=== PATIENT | male | born 1995 | race Caucasian/White ===

== ENCOUNTER 2017-06-04 10:04 | Emergency (ER) | payer SELFPAY ==
[2017-06-04 10:20] VITALS: TEMP 98; BMI 28.5
[2017-06-04] MEDS ORDERED: ONDANSETRON 4 MG/2 ML VIAL IVPUSH ONE (10:32)
[2017-06-04] MEDS ORDERED: SODIUM CHLORIDE 1,000 ML IV STA (10:32)
--- NOTE | 2017-06-04 10:32 | PDOC ---
History of Present Illness - General Chief Complaint: Pain, Acute Stated Complaint: KIDNEY STONES Time Seen by Provider: 06/04/17 10:16 History Source: Patient Exam Limitations: No Limitations - History of Present Illness Initial Comments: 06/04/17 10:35 Patient is a 22-year-old male with no past medical history who presents to emergency department today complaining of a sharp pain on his left side. Patient states that for approximately one week he is had a dull ache on his left flank. He states that last night he was drinking when he coughed. He felt something "drop "and then had a very sharp pain. He took 600 of ibuprofen with relief last night. The pain woke him from sleep this morning. He took 500 mg of naproxen and 200 mg of ibuprofen with some relief. Patient believes he has this pain d/t his drinking. He drinks approximately 1/2 of a rum bottle every night. He currently rates the pain a 10 out of 10. Denies fevers, chills, nausea, vomiting, abdominal pain, frequency, urgency and hematuria. Past History - Travel Traveled outside of the country in the last 30 days: No Close contact w/someone who was outside of country & ill: No - Past Medical History Allergies/Adverse Reactions: Allergies Allergy/AdvReac Type Severity Reaction Status Date / Time No Known Allergies Allergy Verified 06/04/17 10:11 Home Medications: Ambulatory Orders NK [No Known Home Medication] 06/04/17 COPD: No Other medical history: DENIES MEDICAL HX - Suicide/Smoking/Psychosocial Hx Smoking History: Current every day smoker Number of Cigarettes Smoked Daily: 10 Information on smoking cessation initiated: No Hx Alcohol Use: Yes Drug/Substance Use Hx: No Substance Use Type: Alcohol Review of Systems - Review of Systems Able to Perform ROS?: Yes Comments:: 06/04/17 10:35 CONSTITUTIONAL: Absent: fever, chills, diaphoresis, generalized weakness, malaise, loss of appetite HEENT: Absent: rhinorrhea, nasal congestion, throat pain, throat swelling, difficulty swallowing, mouth swelling, ear pain, eye pain, visual Changes CARDIOVASCULAR: Absent: chest pain, loss of consciousness, palpitations, irregular heart rate, peripheral edema RESPIRATORY: Absent: cough, shortness of breath, dyspnea with exertion, orthopnea, wheezing, stridor, hemoptysis GASTROINTESTINAL: Absent: abdominal pain, abdominal distension, nausea, vomiting, diarrhea, constipation, melena, hematochezia GENITOURINARY: Present: L flank pain Absent: dysuria, frequency, urgency, hesitancy, hematuria , genital pain MUSCULOSKELETAL: Absent: myalgia, arthralgia, joint swelling SKIN: Absent: rash, itching, pallor HEMATOLOGIC/IMMUNOLOGIC: Absent: easy bleeding, easy bruising, lymphadenopathy, frequent infections ENDOCRINE: Absent: unexplained weight gain, unexplained weight loss, heat intolerance, cold intolerance NEUROLOGIC: Absent: headache, focal weakness or paresthesias, dizziness, unsteady gait, seizure, mental status changes, bladder or bowel incontinence PSYCHIATRIC: Absent: anxiety, depression, suicidal or homicidal ideation, hallucinations. Is the patient limited Maltese proficient: No *Physical Exam - Vital Signs Last Vital Signs Temp Pulse Resp BP Pulse Ox 98.0 F 99 H 18 136/82 95 06/04/17 10:08 06/04/17 10:08 06/04/17 10:08 06/04/17 10:08 06/04/17 10:08 - Physical Exam Comments: 06/04/17 10:36 GENERAL: Well developed, well nourished. Awake and alert. Mild distress d/t pain. Holding L side. HEENT: Normocephalic, atraumatic. PERRLA, EOMI. No conjunctival pallor. Sclera are non- icteric. Moist mucous membranes. Oropharynx is clear. NECK: Supple. Full ROM. No JVD. Carotid pulses 2+ and symmetric, without bruits. No thyromegaly. No lymphadenopathy. CARDIOVASCULAR: Regular rate and rhythm. No murmurs, rubs, or gallops. Distal pulses are 2+ and symmetric. PULMONARY: No evidence of respiratory distress. Lungs clear to auscultation bilaterally. No wheezing, rales or rhonchi. ABDOMINAL: Soft. Non-tender. Non-distended. No rebound or guarding. No organomegaly. Normoactive bowel sounds. MUSCULOSKELETAL Present: L CVA tenderness. Normal range of motion at all joints. No bony deformities or tenderness. EXTREMITIES: No cyanosis. No clubbing. No edema. No calf tenderness. SKIN: Warm and dry. Normal capillary refill. No rashes. No jaundice. NEUROLOGICAL: Alert, awake, appropriate. Cranial nerves 2-12 intact. No deficits to light touch and temperature in face, upper extremities and lower extremities. No motor deficits in the in face, upper extremities and lower extremities. Normoreflexic in the upper and lower extremities. Normal speech. Toes are down- going bilaterally. Gait is normal without ataxia. PSYCHIATRIC: Cooperative. Good eye contact. Appropriate mood and affect. ED Treatment Course - LABORATORY CBC & Chemistry Diagram: 06/04/17 10:45 06/04/17 10:45 *DC/Admit/Observation/Transfer Diagnosis at time of Disposition: Flank pain - Discharge Dispostion Disposition: HOME Condition at time of disposition: Stable Admit: No - Referrals Referrals: Elijah Etienne MD [Staff Physician] - - Patient Instructions Printed Discharge Instructions: DI for Flank Pain Additional Instructions: You have flank pain. Your CT today was negative for kidney stones. Please take ibuprofen 800 mg every 8 hours. If you still need pain control he may take Tylenol as needed every 6 hours. You may use warm heating pads to the area to help relieve her pain. Your also prescribed Flexeril. He may take this medication at night. Do not drive after taking this medication as it may make you sleepy. Do not mix this medication with alcohol. Please follow-up with the referral provided. Return to the emergency department if you have worsening pain, nausea, vomiting , lightheadedness, blood and urine numbness and tingling, or about bladder and bowel incontinence or any changes in your symptoms. - Post Discharge Activity Forms/Work/School Notes: Back to Work
[2017-06-04] MEDS ORDERED: ACETAMINOPHEN 1000 MG/100 ML VIAL (NON FORMULARY) IVPB ONE (10:33)
[2017-06-04] MEDS ORDERED: ACETAMINOPHEN INJECTION 100 ML IVPB ONE (10:37)
[2017-06-04] MEDS ORDERED: ONDANSETRON 4 MG/2 ML VIAL ONE (10:44)
[2017-06-04 10:51] LABS: BASO % 1.1 % (0-2.0); EOS % 0.5 % (0-4.5); HEMATOCRIT 47.1 % (35.4-49); HEMOGLOBIN 16.8 GM/dL (11.7-16.9); LYMPH % 30.5 % (8-40); MCH 34.7 pg (25.7-33.7); MCHC 35.6 g/dl (32.0-35.9); MEAN CELL VOLUME 97.5 fl (80-96); MEAN PLT VOLUME 7.4 fl (7.5-11.1); MONO % 10.2 % (3.8-10.2); NEUT % 57.7 % (42.8-82.8); PLATELET COUNT 231 K/MM3 (134-434); RBC 4.83 M/mm3 (4.00-5.60)
[2017-06-04 12:27] LABS: ALBUMIN 4.9 g/dl (3.4-5.0); ANION GAP 8 (8-16); BLOOD UREA NITROGEN 18 mg/dL (7-18); CALCIUM 9.1 mg/dL (8.5-10.1); CHLORIDE 104 mmol/L (98-107); CO2 26 mmol/L (21-32); GLUCOSE,RANDOM 96 mg/dL (74-106); POTASSIUM 4.3 mmol/L (3.5-5.1); SODIUM 138 mmol/L (136-145)
[2017-06-04 12:31] LABS: ALK PHOS 104 U/L (45-117); BILIRUBIN,TOTAL 1.1 mg/dL (0.2-1.0); SGOT/AST 37 U/L (15-37); SGPT/ALT 80 U/L (12-78); TOT PROT 7.6 g/dl (6.4-8.2)
[2017-06-04 12:48] LABS: URINE APPEARANCE CLEAR; URINE BILIRUBIN NEGATIVE (NEGATIVE); URINE BLOOD NEGATIVE (NEGATIVE); URINE COLOR LTYELLOW; URINE GLUCOSE (UA) NEGATIVE (NEGATIVE); URINE KETONE NEGATIVE (NEGATIVE); URINE LEUK ESTERASE NEGATIVE (NEGATIVE); URINE NITRITE NEGATIVE (NEGATIVE); URINE PROTEIN NEGATIVE (NEGATIVE); URINE UROBILINOGEN NEGATIVE mg/dL (0.2-1.0)
[2017-06-04 13:50] VITALS: BP 133/86; PULSE 81
== END 2017-06-04 14:26 | disposition home or self-care (01) ==
LOC: JER 10:04
PROC: 3E033NZ Introduction of Analgesics, Hypnotics, Sedatives into Peripheral Vein, Percutaneous Approach (ICD-10-PCS; principal; 2017-06-04)
PROC: 3E033GC Introduction of Other Therapeutic Substance into Peripheral Vein, Percutaneous Approach (ICD-10-PCS; 2017-06-04)
PROC: 3E0337Z Introduction of Electrolytic and Water Balance Substance into Peripheral Vein, Percutaneous Approach (ICD-10-PCS; 2017-06-04)
DX: R10.32 Left lower quadrant pain (principal)
CPT/HCPCS: 36415; 74176; 80053; 81003; 85025; 87086; 99283-25

== ENCOUNTER 2021-12-21 22:14 | Inpatient (IN) | payer SELFPAY ==
[2021-12-21] MEDS ORDERED: FOLIC ACID INJECTION - 1 MG, THIAMINE HCL 100 MG, MULTIVIT INJECTION ADULT 10 ML in SOD... IVPB ONE (23:53)
[2021-12-21] MEDS ORDERED: diazePAM CARPU-JECT 10 MG/2 ML DISP.SYRIN IVPUSH ONE (23:53)
[2021-12-22] MEDS ORDERED: diazePAM CARPU-JECT 10 MG/2 ML DISP.SYRIN ONE (00:14)
[2021-12-22 00:35] LABS: ALBUMIN 4.3 g/dl (3.4-5.0); BLOOD UREA NITROGEN 7.7 mg/dL (7-18); CALCIUM 9.3 mg/dL (8.5-10.1)
[2021-12-22 00:36] LABS: BASO % 1.2 % (0-2.0); EOS % 0.2 % (0-4.5); HEMATOCRIT 47.4 % (35.4-49); HEMOGLOBIN 16.9 GM/dL (11.7-16.9); LYMPH % 24.1 % (8-40); MCH 36.7 pg (25.7-33.7); MCHC 35.7 g/dl (32.0-35.9); MEAN CELL VOLUME 102.8 fl (80-96); MEAN PLT VOLUME 7.4 fl (7.5-11.1); MONO % 10.7 % (3.8-10.2); NEUT % 63.8 % (42.8-82.8); PLATELET COUNT 139 10^3/uL (134-434); RBC 4.61 M/mm3 (4.00-5.60); RDW 13.3 % (11.9-15.9); WHITE BLOOD COUNT 2.9 K/mm3 (4.0-10.0)
[2021-12-22 00:38] LABS: CREATININE 0.9 mg/dL (0.55-1.3)
[2021-12-22 00:39] LABS: BILIRUBIN,TOTAL 1.6 mg/dL (0.2-1); TOT PROT 7.5 g/dl (6.4-8.2)
[2021-12-22] MEDS ORDERED: chlordiazePOXIDE HCL 25 MG CAPSULE PO ONE (02:30)
[2021-12-22] MEDS ORDERED: chlordiazePOXIDE HCL 25 MG CAPSULE ONE (02:34)
[2021-12-22] MEDS ORDERED: LORazepam 1 MG TABLET PO PRN (06:20)
[2021-12-22] MEDS ORDERED: FOLIC ACID INJECTION - 1 MG, THIAMINE HCL 100 MG, MULTIVIT INJECTION ADULT 10 ML in SOD... IVPB ONE ×2 (06:21→07:17)
[2021-12-22] MEDS ORDERED: LORazepam 1 MG TABLET ONE ×2 (06:39→11:10)
[2021-12-22] MEDS: LORazepam 1 MG TABLET PO SCH ×4 (06:48→23:49)
[2021-12-22] MEDS: LACTATED RINGERS SOLUTION 1,000 ML IV SCH ×2 (07:38→19:04)
[2021-12-22 07:58] LABS: BASO % 0.9 % (0-2.0); EOS % 0.3 % (0-4.5); HEMATOCRIT 44.5 % (35.4-49); HEMOGLOBIN 15.7 GM/dL (11.7-16.9); LYMPH % 26.7 % (8-40); MCH 36.5 pg (25.7-33.7); MCHC 35.4 g/dl (32.0-35.9); MEAN CELL VOLUME 103.3 fl (80-96); MONO % 10.1 % (3.8-10.2); PLATELET COUNT 112 10^3/uL (134-434); RDW 13.4 % (11.9-15.9)
[2021-12-22 08:09] LABS: CALCIUM 8.8 mg/dL (8.5-10.1)
[2021-12-22 08:10] LABS: ALBUMIN 3.9 g/dl (3.4-5.0); BLOOD UREA NITROGEN 8.4 mg/dL (7-18); MAGNESIUM 1.5 mg/dL (1.8-2.4)
[2021-12-22 08:13] LABS: BILIRUBIN,TOTAL 2.2 mg/dL (0.2-1); CREATININE 0.7 mg/dL (0.55-1.3); PHOSPHOROUS 3.7 mg/dL (2.5-4.9); TOT PROT 6.4 g/dl (6.4-8.2)
[2021-12-22] MEDS ORDERED: MAGNESIUM OXIDE 400 MG TABLET (FP) PO ONE ×2 (10:12→13:25)
[2021-12-22] MEDS ORDERED: THIAMINE HCL 200 MG/2 ML VIAL ONE (11:09)
[2021-12-22] MEDS ORDERED: MAGNESIUM OXIDE 400 MG TABLET (FP) ONE (11:09)
[2021-12-22] MEDS ORDERED: ENOXAPARIN NA (PORCINE) 40 MG/0.4 ML DISP.SYRIN SQ ONE (11:10)
[2021-12-22] MEDS: ENOXAPARIN NA (PORCINE) 40 MG/0.4 ML DISP.SYRIN SQ SCH (11:23)
[2021-12-22] MEDS: THIAMINE HCL 200 MG/2 ML VIAL IVPB SCH (11:23)
[2021-12-22 15:27] LABS: BILIRUBIN,DIRECT 0.8 mg/dL (0.0-0.2)
[2021-12-22] MEDS ORDERED: NICOTINE 7 MG/24 HOURS TOPICAL PATCH TD ONE (16:38)
[2021-12-22] MEDS: NICOTINE 7 MG/24 HOURS TOPICAL PATCH TD SCH (16:46)
[2021-12-23 00:57] VITALS: BMI 30.1
[2021-12-23] MEDS: LACTATED RINGERS SOLUTION 1,000 ML IV SCH ×3 (05:50→16:23)
[2021-12-23] MEDS: LORazepam 1 MG TABLET PO SCH ×4 (06:16→22:03)
[2021-12-23] MEDS ORDERED: MAGNESIUM OXIDE 400 MG TABLET (FP) PO ONE (09:31)
[2021-12-23] MEDS ORDERED: FOLIC ACID 5 MG/1 ML SQ SCH (10:00)
[2021-12-23] MEDS ORDERED: FOLIC ACID 1 MG TABLET (FP) PO SCH (10:00)
[2021-12-23 10:01] LABS: HEMATOCRIT 43.7 % (35.4-49); HEMOGLOBIN 15.5 GM/dL (11.7-16.9); MCH 36.2 pg (25.7-33.7); MCHC 35.6 g/dl (32.0-35.9); MEAN CELL VOLUME 101.8 fl (80-96); MEAN PLT VOLUME 8.5 fl (7.5-11.1); PLATELET COUNT 96 10^3/uL (134-434); RBC 4.29 M/mm3 (4.00-5.60); RDW 13.3 % (11.9-15.9); WHITE BLOOD COUNT 3.6 K/mm3 (4.0-10.0)
[2021-12-23 10:31] LABS: ALBUMIN 3.6 g/dl (3.4-5.0); BLOOD UREA NITROGEN 6.4 mg/dL (7-18); CALCIUM 9.1 mg/dL (8.5-10.1)
[2021-12-23 10:32] LABS: MAGNESIUM 1.8 mg/dL (1.8-2.4)
[2021-12-23 10:34] LABS: BILIRUBIN,DIRECT 1.1 mg/dL (0.0-0.2); CREATININE 0.7 mg/dL (0.55-1.3)
[2021-12-23 10:35] LABS: PHOSPHOROUS 2.6 mg/dL (2.5-4.9)
[2021-12-23 10:36] LABS: TOT PROT 6.4 g/dl (6.4-8.2)
[2021-12-23] MEDS: NICOTINE 7 MG/24 HOURS TOPICAL PATCH TD SCH (10:47)
[2021-12-23] MEDS: THIAMINE HCL 200 MG/2 ML VIAL IVPB SCH (10:47)
[2021-12-23] MEDS: ENOXAPARIN NA (PORCINE) 40 MG/0.4 ML DISP.SYRIN SQ SCH (10:47)
[2021-12-23 18:37] VITALS: TEMP 98.7
[2021-12-23 20:27] VITALS: BP 143/89; PULSE 65
[2021-12-24] MEDS ORDERED: LORazepam 0.5 MG TABLET PO PRN
[2021-12-24 00:09] VITALS: RESP 18
[2021-12-24] MEDS ORDERED: LORazepam 0.5 MG TABLET PO SCH (05:00)
[2021-12-25] MEDS ORDERED: LORazepam 0.5 MG TABLET PO ONE (05:00)
== END 2021-12-23 22:50 | disposition left against medical advice (07) | DRG 770 ==
LOC: JER 22:14 → JERBED 12-22 06:04 → J5S 12-22 18:23
PROVIDERS: ADMIT Internal Medicine; ATTEND Internal Medicine
PROC: HZ2ZZZZ Detoxification Services for Substance Abuse Treatment (ICD-10-PCS; principal; 2021-12-22)
DX: F10.239 Alcohol dependence with withdrawal, unspecified (principal); R74.01 Elevation of levels of liver transaminase levels
CPT/HCPCS: 36415; 70450-TC; 70486-TC; 71046-TC-FY; 74177-TC; 80053; 80076; 80307; 82248; 83690; 83735; 84100; 85025; 85027; 86704; 86803; 87340; 87517; 93005; 93010; 99285-25; C9803-CS; Q9967; U0003; U0005

== ENCOUNTER 2022-04-12 18:02 | Inpatient (IN) | payer OTHER ==
[2022-04-12 18:54] VITALS: BMI 25.4
[2022-04-12] MEDS ORDERED: ACETAMINOPHEN 325 MG TABLET (FP) PO PRN ×2 (19:16)
[2022-04-12] MEDS ORDERED: POLYETHYLENE GLYCOL (HEALTHYLAX) 3350 17 GM PACKET PO PRN (19:16)
[2022-04-12] MEDS ORDERED: ONDANSETRON *ODT* 4 MG TABLET SL PRN (19:16)
[2022-04-12] MEDS ORDERED: BENZOCAINE/MENTHOL (CHLORASEPTIC ) LOZENGE MM PRN (19:16)
[2022-04-12] MEDS ORDERED: LOPERAMIDE HCL 2 MG CAPSULE PO PRN (19:16)
[2022-04-12] MEDS ORDERED: IBUPROFEN 600 MG TABLET (FP) PO PRN (19:16)
[2022-04-12] MEDS ORDERED: hydrOXYzine PAMOATE 25 MG CAPSULE (FP) PO PRN (19:16)
[2022-04-12] MEDS ORDERED: guaiFENesin 200 MG/10 ML 10 ML UNIT-DOSE CUPS PO PRN (19:16)
[2022-04-12] MEDS ORDERED: DICYCLOMINE HCL 10 MG CAPSULE PO PRN (19:16)
[2022-04-12] MEDS ORDERED: METHOCARBAMOL 500 MG TABLET PO PRN (19:16)
[2022-04-12] MEDS ORDERED: P-EPHED 60MG/TRIPROLIDI 2.5MG TABLET PO PRN (19:16)
[2022-04-12] MEDS ORDERED: MAGNESIUM HYDROX 2400MG/30ML ORAL SUSPENSION 30 ML CUP PO PRN (19:16)
[2022-04-12] MEDS ORDERED: IBUPROFEN 400 MG TABLET (FP) PO PRN (19:16)
[2022-04-12] MEDS ORDERED: BISMUTH SUBSALICYLATE 524 MG/30 ML PO PRN (19:16)
[2022-04-12] MEDS ORDERED: MAG HYDROX/AL HYDROX/SIMETH 30 ML UNIT-DOSE CUP PO PRN (19:16)
[2022-04-12] MEDS ORDERED: NICOTINE POLACRILEX 2 MG GUM BUC PRN (19:16)
[2022-04-12] MEDS ORDERED: chlordiazePOXIDE HCL 25 MG CAPSULE PO PRN (19:21)
[2022-04-12] MEDS ORDERED: LORazepam 2 MG/ML SDV VIAL IM ONE (19:40)
[2022-04-12] MEDS ORDERED: TRIMETHOBENZAMIDE HCL 200MG/2ML INJ IM ONE ×2 (19:40→21:38)
[2022-04-12] MEDS ORDERED: THIAMINE HCL 100 MG TABLET (FP) PO SCH (22:00)
[2022-04-12] MEDS ORDERED: MELATONIN 5 MG TABLETS PO SCH (22:00)
[2022-04-12] MEDS: chlordiazePOXIDE HCL 25 MG CAPSULE PO SCH (22:45)
[2022-04-13] MEDS: chlordiazePOXIDE HCL 25 MG CAPSULE PO SCH ×2 (05:27→10:06)
[2022-04-13 06:28] VITALS: RESP 18
[2022-04-13 09:29] VITALS: BP 137/97; PULSE 115; TEMP 97.7
[2022-04-13] MEDS ORDERED: PRENATAL VITAMINS W/ FOLIC ACID TABLET (FP) PO SCH (10:00)
[2022-04-13 11:01] LABS: HEMATOCRIT 47.9 % (35.4-49); HEMOGLOBIN 16.6 GM/dL (11.7-16.9); MCH 35.7 pg (25.7-33.7); MCHC 34.6 g/dl (32.0-35.9); MEAN CELL VOLUME 103.3 fl (80-96); MEAN PLT VOLUME 8.2 fl (7.5-11.1); PLATELET COUNT 134 10^3/uL (134-434); RBC 4.64 M/mm3 (4.00-5.60); RDW 12.5 % (11.9-15.9); WHITE BLOOD COUNT 3.7 K/mm3 (4.0-10.0)
[2022-04-13 11:12] LABS: CALCIUM 10.5 mg/dL (8.5-10.1)
[2022-04-13 11:13] LABS: BLOOD UREA NITROGEN 8.6 mg/dL (7-18)
[2022-04-13 11:15] LABS: CREATININE 0.9 mg/dL (0.55-1.3)
[2022-04-13 11:16] LABS: BILIRUBIN,TOTAL 3.2 mg/dL (0.2-1)
[2022-04-13 11:17] LABS: TOT PROT 8.3 g/dl (6.4-8.2)
[2022-04-14] MEDS ORDERED: chlordiazePOXIDE HCL 25 MG CAPSULE PO SCH (05:00)
[2022-04-15] MEDS ORDERED: chlordiazePOXIDE HCL 10 MG CAPSULE PO PRN
[2022-04-15] MEDS ORDERED: chlordiazePOXIDE HCL 10 MG CAPSULE PO SCH (05:00)
[2022-04-16] MEDS ORDERED: chlordiazePOXIDE HCL 10 MG CAPSULE PO SCH (05:00)
[2022-04-17] MEDS ORDERED: chlordiazePOXIDE HCL 10 MG CAPSULE PO ONE (05:00)
== END 2022-04-13 11:46 | disposition left against medical advice (07) | DRG 770 ==
LOC: YASAS 18:02 → Y3N 21:24
PROVIDERS: ADMIT Allergy & Immunology; ATTEND Surgery
PROC: HZ2ZZZZ Detoxification Services for Substance Abuse Treatment (ICD-10-PCS; principal; 2022-04-12)
DX: F10.230 Alcohol dependence with withdrawal, uncomplicated (principal); F12.20 Cannabis dependence, uncomplicated; F17.210 Nicotine dependence, cigarettes, uncomplicated; Z28.310 Unvaccinated for COVID-19; Z28.9 Immunization not carried out for unspecified reason
CPT/HCPCS: 36415; 80053; 85027; 86780; C9803-CS; Q0162; U0003; U0005

== ENCOUNTER 2022-06-14 16:51 | Inpatient (IN) | payer OTHER ==
[2022-06-14 17:12] VITALS: BMI 25.7
[2022-06-14] MEDS ORDERED: TRIMETHOBENZAMIDE HCL 200MG/2ML INJ IM ONE ×2 (17:15→17:23)
[2022-06-14] MEDS ORDERED: LORazepam 2 MG/ML SDV VIAL IM ONE (17:30)
[2022-06-14] MEDS ORDERED: BENZOCAINE/MENTHOL (CHLORASEPTIC ) LOZENGE MM PRN (17:35)
[2022-06-14] MEDS ORDERED: NICOTINE 10 MG CARTRIDGE (INHALER) IH PRN (17:35)
[2022-06-14] MEDS ORDERED: MAGNESIUM HYDROX 2400MG/30ML ORAL SUSPENSION 30 ML CUP PO PRN (17:35)
[2022-06-14] MEDS ORDERED: IBUPROFEN 600 MG TABLET (FP) PO PRN (17:35)
[2022-06-14] MEDS ORDERED: POLYETHYLENE GLYCOL (HEALTHYLAX) 3350 17 GM PACKET PO PRN (17:35)
[2022-06-14] MEDS ORDERED: METHOCARBAMOL 500 MG TABLET PO PRN (17:35)
[2022-06-14] MEDS ORDERED: IBUPROFEN 400 MG TABLET (FP) PO PRN (17:35)
[2022-06-14] MEDS ORDERED: guaiFENesin 600 MG TABLET.ER (FP) PO PRN (17:35)
[2022-06-14] MEDS ORDERED: BISMUTH SUBSALICYLATE 524 MG/30 ML PO PRN (17:35)
[2022-06-14] MEDS ORDERED: P-EPHED 60MG/TRIPROLIDI 2.5MG TABLET PO PRN (17:35)
[2022-06-14] MEDS ORDERED: NICOTINE POLACRILEX 2 MG GUM BUC PRN (17:35)
[2022-06-14] MEDS ORDERED: ONDANSETRON *ODT* 4 MG TABLET SL PRN (17:35)
[2022-06-14] MEDS ORDERED: LOPERAMIDE HCL 2 MG CAPSULE PO PRN (17:35)
[2022-06-14] MEDS ORDERED: DICYCLOMINE HCL 10 MG CAPSULE PO PRN (17:35)
[2022-06-14] MEDS ORDERED: BENZONATATE 200 MG CAPSULE PO PRN (17:35)
[2022-06-14] MEDS ORDERED: ACETAMINOPHEN 325 MG TABLET (FP) PO PRN (17:35)
[2022-06-14] MEDS ORDERED: MELATONIN 5 MG TABLETS PO PRN (17:35)
[2022-06-14] MEDS ORDERED: MAG HYDROX/AL HYDROX/SIMETH 30 ML UNIT-DOSE CUP PO PRN (17:35)
[2022-06-14] MEDS ORDERED: METOPROLOL TARTRATE 50 MG TABLET (FP) PO ONE (17:38)
[2022-06-14] MEDS ORDERED: chlordiazePOXIDE HCL 25 MG CAPSULE PO PRN (17:38)
[2022-06-14] MEDS ORDERED: chlordiazePOXIDE HCL 25 MG CAPSULE ONE (17:49)
[2022-06-14] MEDS ORDERED: METOPROLOL TARTRATE 25 MG TABLET (FP) ONE (17:49)
[2022-06-14] MEDS: chlordiazePOXIDE HCL 25 MG CAPSULE PO SCH ×2 (17:50→22:38)
[2022-06-14] MEDS ORDERED: METOPROLOL TARTRATE 25 MG TABLET (FP) PO ONE (18:00)
[2022-06-14] MEDS: THIAMINE HCL 100 MG TABLET (FP) PO SCH (22:38)
[2022-06-14] MEDS: levETIRAcetam 500 MG TABLET (FP) PO SCH (22:38)
[2022-06-15] MEDS: chlordiazePOXIDE HCL 25 MG CAPSULE PO SCH ×4 (05:17→22:14)
[2022-06-15] MEDS ORDERED: TRIMETHOBENZAMIDE HCL 200MG/2ML INJ IM ONE (08:46)
[2022-06-15 10:04] LABS: HEMATOCRIT 43.3 % (35.4-49); HEMOGLOBIN 14.8 GM/dL (11.7-16.9); MCH 34.5 pg (25.7-33.7); MCHC 34.1 g/dl (32.0-35.9); MEAN CELL VOLUME 101.2 fl (80-96); MEAN PLT VOLUME 7.5 fl (7.5-11.1); PLATELET COUNT 105 10^3/uL (134-434); RBC 4.28 M/mm3 (4.00-5.60); RDW 13.2 % (11.9-15.9)
[2022-06-15] MEDS: PRENATAL VITAMINS W/ FOLIC ACID TABLET (FP) PO SCH (10:09)
[2022-06-15] MEDS: levETIRAcetam 500 MG TABLET (FP) PO SCH ×2 (10:09→22:13)
[2022-06-15] MEDS ORDERED: POTASSIUM CHLORIDE ORAL LIQUID 20 MEQ/15 ML PO ONE (14:01)
[2022-06-15 14:07] LABS: CALCIUM 8.9 mg/dL (8.5-10.1)
[2022-06-15 14:08] LABS: ALBUMIN 4.3 g/dl (3.4-5.0); BLOOD UREA NITROGEN 13.1 mg/dL (7-18)
[2022-06-15 14:11] LABS: CREATININE 0.8 mg/dL (0.55-1.3)
[2022-06-15 14:12] LABS: BILIRUBIN,TOTAL 2.9 mg/dL (0.2-1); TOT PROT 7.2 g/dl (6.4-8.2)
[2022-06-15] MEDS: THIAMINE HCL 100 MG TABLET (FP) PO SCH (22:13)
[2022-06-16] MEDS ORDERED: LORazepam 1 MG TABLET PO PRN (00:20)
[2022-06-16] MEDS ORDERED: chlordiazePOXIDE HCL 25 MG CAPSULE PO SCH (05:00)
[2022-06-16] MEDS: LORazepam 1 MG TABLET PO SCH ×2 (05:28→10:08)
[2022-06-16 06:19] VITALS: RESP 16
[2022-06-16 09:11] VITALS: BP 136/89; PULSE 90; TEMP 96.9
[2022-06-16] MEDS: PRENATAL VITAMINS W/ FOLIC ACID TABLET (FP) PO SCH (10:08)
[2022-06-16] MEDS: levETIRAcetam 500 MG TABLET (FP) PO SCH (10:08)
[2022-06-17] MEDS ORDERED: LORazepam 0.5 MG TABLET PO PRN
[2022-06-17] MEDS ORDERED: chlordiazePOXIDE HCL 10 MG CAPSULE PO PRN
[2022-06-17] MEDS ORDERED: LORazepam 0.5 MG TABLET PO SCH (05:00)
[2022-06-17] MEDS ORDERED: chlordiazePOXIDE HCL 10 MG CAPSULE PO SCH (05:00)
[2022-06-18] MEDS ORDERED: LORazepam 0.5 MG TABLET PO ONE (05:00)
[2022-06-18] MEDS ORDERED: chlordiazePOXIDE HCL 10 MG CAPSULE PO SCH (05:00)
[2022-06-19] MEDS ORDERED: chlordiazePOXIDE HCL 10 MG CAPSULE PO ONE (05:00)
== END 2022-06-16 11:40 | disposition left against medical advice (07) | DRG 770 ==
LOC: YASAS 16:51 → Y3N 17:43
PROVIDERS: ADMIT Allergy & Immunology; ATTEND Surgery
PROC: HZ2ZZZZ Detoxification Services for Substance Abuse Treatment (ICD-10-PCS; principal; 2022-06-14)
DX: F10.230 Alcohol dependence with withdrawal, uncomplicated (principal); F17.210 Nicotine dependence, cigarettes, uncomplicated; E87.6 Hypokalemia; R79.89 Other specified abnormal findings of blood chemistry; R74.8 Abnormal levels of other serum enzymes; Z28.310 Unvaccinated for COVID-19; Z28.9 Immunization not carried out for unspecified reason
CPT/HCPCS: 36415; 80053; 85027; 86780; 87811; C9803-CS; Q0162; U0003; U0005

== ENCOUNTER 2022-11-12 22:51 | Inpatient (IN) | payer OTHER ==
[2022-11-13 01:01] VITALS: BMI 25.2
[2022-11-13] MEDS ORDERED: POLYETHYLENE GLYCOL (HEALTHYLAX) 3350 17 GM PACKET PO PRN (01:47)
[2022-11-13] MEDS ORDERED: LOPERAMIDE HCL 2 MG CAPSULE PO PRN (01:47)
[2022-11-13] MEDS ORDERED: IBUPROFEN 400 MG TABLET (FP) PO PRN (01:47)
[2022-11-13] MEDS ORDERED: chlordiazePOXIDE HCL 25 MG CAPSULE PO PRN (01:47)
[2022-11-13] MEDS ORDERED: IBUPROFEN 600 MG TABLET (FP) PO PRN (01:47)
[2022-11-13] MEDS ORDERED: chlordiazePOXIDE HCL 25 MG CAPSULE PO ONE (01:47)
[2022-11-13] MEDS ORDERED: MAG HYDROX/AL HYDROX/SIMETH 30 ML UNIT-DOSE CUP PO PRN (01:47)
[2022-11-13] MEDS ORDERED: ACETAMINOPHEN 325 MG TABLET (FP) PO PRN (01:47)
[2022-11-13] MEDS ORDERED: NALOXONE HCL (KLOXXADO) 8 MG SPRAY NS PRN (01:47)
[2022-11-13] MEDS ORDERED: MAGNESIUM HYDROX 2400MG/30ML ORAL SUSPENSION 30 ML CUP PO PRN (01:47)
[2022-11-13] MEDS ORDERED: METHOCARBAMOL 500 MG TABLET PO PRN (01:47)
[2022-11-13] MEDS ORDERED: DICYCLOMINE HCL 10 MG CAPSULE PO PRN (01:47)
[2022-11-13] MEDS ORDERED: guaiFENesin 600 MG TABLET.ER (FP) PO PRN (01:47)
[2022-11-13] MEDS ORDERED: BENZOCAINE/MENTHOL (CHLORASEPTIC ) LOZENGE MM PRN (01:47)
[2022-11-13] MEDS ORDERED: NALOXONE HCL 0.4 MG/ML VIAL IM PRN (01:47)
[2022-11-13] MEDS ORDERED: hydrOXYzine PAMOATE 25 MG CAPSULE (FP) PO PRN (01:47)
[2022-11-13] MEDS ORDERED: BISMUTH SUBSALICYLATE 524 MG/30 ML PO PRN (01:47)
[2022-11-13] MEDS ORDERED: ONDANSETRON *ODT* 4 MG TABLET SL PRN (01:47)
[2022-11-13] MEDS ORDERED: BENZONATATE 200 MG CAPSULE PO PRN (01:47)
[2022-11-13] MEDS ORDERED: LORazepam 1 MG TABLET PO PRN (02:01)
[2022-11-13] MEDS ORDERED: chlordiazePOXIDE HCL 25 MG CAPSULE PO SCH (05:00)
[2022-11-13] MEDS ORDERED: LORazepam 2 MG TABLET PO ONE (05:00)
[2022-11-13] MEDS ORDERED: NICOTINE 7 MG/24 HOURS TOPICAL PATCH TD SCH (10:00)
[2022-11-13] MEDS ORDERED: PRENATAL VITAMINS W/ FOLIC ACID TABLET (FP) PO SCH (10:00)
[2022-11-13] MEDS: LORazepam 2 MG TABLET PO SCH ×2 (10:22→11:36)
[2022-11-13] MEDS ORDERED: NICOTINE 7 MG/24 HOURS TOPICAL PATCH TD ONE (10:26)
[2022-11-13] MEDS ORDERED: PRENATAL VITAMINS W/ FOLIC ACID TABLET (FP) PO ONE (10:27)
[2022-11-13 10:29] VITALS: BP 133/81; PULSE 84; RESP 16; TEMP 98.9
[2022-11-13] MEDS ORDERED: LORazepam 2 MG TABLET ONE (11:28)
[2022-11-13] MEDS ORDERED: TUBERCULIN PPD 5 TU/0.1ML SYRINGE (IN PATIENT USE ONLY) ID ONE (11:39)
[2022-11-13] MEDS ORDERED: THIAMINE HCL 100 MG TABLET (FP) PO SCH (22:00)
[2022-11-13] MEDS ORDERED: MELATONIN 5 MG TABLETS PO SCH (22:00)
[2022-11-14] MEDS ORDERED: chlordiazePOXIDE HCL 25 MG CAPSULE PO SCH (05:00)
[2022-11-14] MEDS ORDERED: LORazepam 1 MG TABLET PO SCH (05:00)
[2022-11-15] MEDS ORDERED: LORazepam 0.5 MG TABLET PO PRN
[2022-11-15] MEDS ORDERED: chlordiazePOXIDE HCL 10 MG CAPSULE PO PRN
[2022-11-15] MEDS ORDERED: LORazepam 0.5 MG TABLET PO SCH (05:00)
[2022-11-15] MEDS ORDERED: chlordiazePOXIDE HCL 10 MG CAPSULE PO SCH (05:00)
[2022-11-16] MEDS ORDERED: LORazepam 0.5 MG TABLET PO ONE (05:00)
[2022-11-16] MEDS ORDERED: chlordiazePOXIDE HCL 10 MG CAPSULE PO SCH (05:00)
[2022-11-17] MEDS ORDERED: chlordiazePOXIDE HCL 10 MG CAPSULE PO ONE (05:00)
== END 2022-11-13 13:35 | disposition left against medical advice (07) | DRG 770 ==
LOC: Y3N 11-13 10:56
PROVIDERS: ADMIT Allergy & Immunology; ATTEND Allergy & Immunology
PROC: HZ2ZZZZ Detoxification Services for Substance Abuse Treatment (ICD-10-PCS; principal; 2022-11-13)
DX: F10.230 Alcohol dependence with withdrawal, uncomplicated (principal); F12.20 Cannabis dependence, uncomplicated; F17.210 Nicotine dependence, cigarettes, uncomplicated; F10.282 Alcohol dependence with alcohol-induced sleep disorder; I42.9 Cardiomyopathy, unspecified; R94.5 Abnormal results of liver function studies; Z86.74 Personal history of sudden cardiac arrest; Z86.69 Personal history of other diseases of the nervous system and sense organs
CPT/HCPCS: 36415; 70450-TC; 72125-TC; 80053; 83735; 85025; 87635; 87811; 93005; 93010